=== PATIENT | female | born 1985 | race Caucasian/White ===

== ENCOUNTER 2022-01-19 05:50 | Inpatient (IN) | payer OTHER ==
[2022-01-18 12:00] VITALS: BMI 36.8
--- NOTE | 2022-01-18 20:08 | P.HPOB ---
History of Present Illness H&P Date: 01/18/22 Chief Complaint: Scheduled repeat cesasrean section This is a 36 y.o. female, 3, para 2, with an estimated date of confinement of 01/24/2022, estimated gestational age of 39-2/7 weeks, who presents for scheduled repeat section. Her has been uncomplicated and she has been followed by maternal medicine due to advanced maternal age and history of HELLP syndrome. She has been on baby ASA for prevention of preeclampsia. She has been doing regular NSTs. labs: Hepatitis B surface antigen-neg RPR-NR Rubella-immune HIV-NR Blood type-A+ Antibody screen-neg Hemoglobin-12.9 1 hr. GTT-110 GBS-neg OB Hx: . History of 2 previous sections. 1st was term with failure to progress. 2nd was at 35 weeks with HELLP syndrome. [employer] Hx: No hx of STDs Social Hx: . Works part-time as a restaurant line server. Review of Systems Constitutional: Denies chills, Denies fever Eyes: denies blurred vision, denies pain Ears, nose, mouth and throat: Denies headache, Denies sore throat Cardiovascular: Denies chest pain, Denies shortness of breath Respiratory: Denies cough Gastrointestinal: Reports abdominal pain (irregular contractions), Denies diarrhea, Denies nausea, Denies vomiting Genitourinary: Reports , Denies dysuria, Denies hematuria Musculoskeletal: Reports low back pain Integumentary: Denies pruritus, Denies rash Neurological: Denies numbness, Denies weakness Psychiatric: Denies anxiety, Denies depression Past Medical History Past Medical History: No Reported History History of Any Multi-Drug Resistant Organisms: None Reported Past Surgical History: Section (x2), Orthopedic Surgery Additional Past Surgical History / Comment(s): RT KNEE SCOPE Past Anesthesia/Blood Transfusion Reactions: No Reported Reaction Past Psychological History: No Psychological Hx Reported Smoking Status: Never smoker Past Alcohol Use History: None Reported Past Drug Use History: None Reported - Past Family History Father Family Medical History: Cancer (prostate) Sister(s) Family Medical History: Thyroid Disorder Additional Family Medical History / Comment(s): hashimotos Medications and Allergies Home Medications Medication Instructions Recorded Confirmed Type Aspirin EC [Ecotrin Low Dose] 81 mg PO DAILY 01/18/22 01/19/22 History Pnv No.95/Ferrous Fum/Folic AC 1 each PO DAILY 01/18/22 01/19/22 History [ Multivitamin Tablet] Allergies Allergy/AdvReac Type Severity Reaction Status Date / Time No Known Allergies Allergy Verified 01/19/22 06:08 Exam Osteopathic Statement: *. No significant issues noted on an osteopathic structural exam other than those noted in the History and Physical/Consult. Intake and Output 01/18/22 01/18/22 01/18/22 06:59 14:59 22:59 Other: Weight 97.522 kg HEENT: within normal limits Heart: regular rate and rhythm Lungs: clear to auscultation bilaterally Abdomen: soft, , non-tender Cervix: closed/50%/floating heart tones: 140's by doppler Extremities: neg. Roseanne's Results Result Diagrams: 01/19/22 06:15 Assessment and Plan (1) 39 weeks gestation of Current Visit: No Status: Acute Code(s): Z3A.39 - 39 WEEKS GESTATION OF SNOMED Code(s): 70129737 (2) Previous delivery affecting Current Visit: No Status: Acute Code(s): O34.219 - MATERNAL CARE FOR UNSP TYPE SCAR FROM PREVIOUS DEL SNOMED Code(s): 706392895 (3) Advanced maternal age (AMA) in Current Visit: No Status: Acute Code(s): FAW5621 - SNOMED Code(s): 360375501 Plan: Proceed with repeat low transverse section. I have discussed the risks, benefits, and alternative therapies for the above- mentioned procedure and for both sedation/anesthesia as well as necessary blood products administration, if indicated, as they pertain to this patient. The patient has indicated her understanding and acceptance of the risks and procedures discussed.
[2022-01-19] MEDS ORDERED: LACTATED RINGERS 1,000 ML IV ONE (06:08)
[2022-01-19] MEDS ORDERED: CITRIC ACID-SODIUM CITRATE 15 ML CUP PO ONE (06:08)
[2022-01-19] MEDS ORDERED: LIDOCAINE 1% (10MG/ML) FOR IV START INTRADERMA PRN (06:08)
[2022-01-19 06:34] LABS: Basophils % (A) 0 %; Eosinophils # (A) 0.2 k/uL (0-0.7); Eosinophils % (A) 2 %; HCT 38.1 % (34.0-46.0); HGB 12.4 gm/dL (11.4-16.0); Lymphocytes # (A) 1.8 k/uL (1.0-4.8); Lymphocytes % (A) 16 %; MCH 30.4 pg (25.0-35.0); MCHC 32.7 g/dL (31.0-37.0); MCV 93.1 fL (80.0-100.0); Mean Platelet Volume 9.5; Monocytes # (A) 0.5 k/uL (0-1.0); Monocytes % (A) 4 %; Neutrophils # (A) 8.6 k/uL (1.3-7.7); Neutrophils % (A) 76 %; Platelet Count 193 k/uL (150-450); RBC 4.09 m/uL (3.80-5.40); RDW 13.1 % (11.5-15.5); WBC 11.2 k/uL (3.8-10.6)
[2022-01-19] MEDS: LACTATED RINGERS 1,000 ML IV SCH ×2 (07:52→21:33)
[2022-01-19] MEDS ORDERED: NALBUPHINE 10 MG/ML (1 ML AMP) ONE (07:57)
[2022-01-19] MEDS ORDERED: ONDANSETRON 4 MG/2 ML VIAL ONE (07:57)
[2022-01-19] MEDS ORDERED: KETOROLAC 15 MG/ML 1 ML VIAL ONE (07:57)
[2022-01-19] MEDS ORDERED: ePHEDrine 50 MG/ML 1 ML VIAL ONE (07:57)
[2022-01-19] MEDS ORDERED: OXYTOCIN 30 UNITS/500 ML NS BAG IV ONE (07:57)
[2022-01-19] MEDS ORDERED: MORPHINE SULFATE (PF) 0.3 MG/0.3 ML SYR ONE (07:57)
[2022-01-19] MEDS ORDERED: GLYCOPYRROLATE 0.2 MG/ML 2 ML VIAL ONE (07:57)
--- NOTE | 2022-01-19 08:50 | P.OP ---
Date of Procedure: 01/19/22 Preoperative Diagnosis: 1. Intrauterine at 39-2/7 weeks. 2. History of previous sections. 3. Advanced maternal age. Postoperative Diagnosis: 1. Intrauterine at 39-2/7 weeks. 2. History of previous sections. 3. Advanced maternal age. 4. Meconium. Procedure(s) Performed: Repeat low transverse section Anesthesia: spinal (Duramorph) Surgeon: Adrienne Abraham Perforator Operator #1: Trey Valenzuela Estimated Blood Loss (ml): 350 Pathology: other (Placenta) Condition: stable Disposition: floor Indications for Procedure: This is a 36-year-old female 3 para 2 at 39-2/7 weeks who presents for scheduled repeat section due to history of previous sections. I have discussed the risks, benefits, and alternative therapies for the above- mentioned procedure and for both sedation/anesthesia as well as necessary blood products administration, if indicated, as they pertain to this patient. The patient has indicated her understanding and acceptance of the risks and procedures discussed. Operative Findings: A viable male infant is noted in the vertex presentation with scores of 8 at 1 minute and 9 at 5 minutes and weight of 6 lbs. 11 oz. Meconium fl uid was noted. Normal uterus tubes and ovaries are noted. Description of Procedure: The patient is taken to the operating room where she is placed in the dorsal supine position with leftward tilt after spinal Duramorph anesthesia is given. She is prepped and draped in the normal sterile fashion. Skin was tested and found to be adequately anesthetized. A Pfannenstiel skin incision was made with a scalpel through the previous laparotomy scar. A second knife was used to carry the incision down to the underlying layer of fascia. The fascia was nicked in the midline with a scalpel and then extended laterally bilaterally with Canela scissors. The anterior lip of the fascia was grasped with 2 Bonnie clamps and then dissected off the underlying rectus muscle in the midline with Canela scissors. The inferior aspect of the fascial incision was grasped with 2 Bonnie clamps and dissected off the underlying rectus muscle and the midline with Canela scissors. Next the peritoneum layer was tented up with 2 hemostats and then entered sharply with the scalpel. The incision is extended superiorly and inferiorly with Metzenbaum scissors. Next a DeLee retractor is placed. The vesicouterine peritoneum is entered sharply with Metzenbaum scissors and extended laterally bilaterally with Metzenbaum scissors and then the bladder flap is pushed inferiorly. The lower uterine segment is incised in transverse fashion with the scalpel and then bluntly entered with a hemostat. Meconium fluid is noted. The incision was then extended laterally bilaterally with 2 fingers. Next the infant's head is delivered through the incision. Nose and mouth are bulb suctioned. The remainder of the infant is easily delivered and placed on mother's abdomen. Cord is clamped and cut. Infant is taken to warmer by nursing staff. Uterine fundus is gently massaged and placenta is delivered manually. Uterus is exteriorized and cleared of all clots and debris. Uterine incision is closed with 0 Vicryl suture in a running locked fashion. A second layer of 0 Vicryl suture is used in a running fashion for hemostasis. Good hemostasis is noted. Posterior cul-de-sac is suctioned of all clots and debris. Uterus is returned to the abdomen. Incision is noted to be hemostatic. Peritoneal layer is closed with 0 Vicryl suture in a running fashion. Muscle layer is reapproximated with 0 Vicryl suture in interrupted fashion. Fascia layer is then closed with 0 PDS suture with 2 sutures meeting in the midline and the knots buried in either side and in the midline. The subcutaneous tissue was then closed with 2-0 Vicryl suture. Skin layer was then closed with josue. All sponge and needle counts are correct. The patient is taken to recovery room in stable condition.
[2022-01-19] MEDS ORDERED: ONDANSETRON 4 MG/2 ML VIAL IVP PRN (09:10)
[2022-01-19] MEDS ORDERED: diphenhydrAMINE 50 MG/ML 1 ML VIAL IVP PRN ×2 (09:10)
[2022-01-19] MEDS ORDERED: OXYTOCIN 30 UNITS/500 ML NS 30 UNIT in SALINE 1 500ML.BAG IV SCH (09:10)
[2022-01-19] MEDS ORDERED: HYDROmorphone 0.5 MG/0.5 ML SYRINGE IVP PRN (09:10)
[2022-01-19] MEDS ORDERED: ZOLPIDEM 5 MG TAB PO PRN (09:10)
[2022-01-19] MEDS ORDERED: NALOXONE 0.4 MG/ML 1 ML VIAL IV PRN (09:10)
[2022-01-19] MEDS ORDERED: METOCLOPRAMIDE 5 MG/ML 2 ML VIAL IVP PRN (09:10)
[2022-01-19] MEDS ORDERED: LANOLIN CREAM 5 GM TUBE TOPICAL PRN (09:10)
[2022-01-19] MEDS ORDERED: diphenhydrAMINE 25 MG CAP PO PRN (09:10)
[2022-01-19] MEDS ORDERED: diphenhydrAMINE 50 MG CAP PO PRN (09:10)
[2022-01-19] MEDS ORDERED: SIMETHICONE 80 MG CHEWABLE PO PRN (09:10)
[2022-01-19] MEDS ORDERED: HYDROmorphone 1 MG/ML 1 ML SYRINGE IVP PRN (09:10)
[2022-01-19] MEDS: ACETAMINOPHEN IV (For NPO) 1,000 MG in EMPTY BAG 1 BAG IVPB SCH ×2 (14:00→21:33)
[2022-01-19] MEDS: ACETAMINOPHEN TAB 500 MG TAB PO SCH ×2 (17:57→19:37)
[2022-01-19] MEDS: IBUPROFEN 600 MG TAB PO SCH ×2 (17:57→22:34)
[2022-01-19] MEDS ORDERED: KETOROLAC 15 MG/ML 1 ML VIAL IVP SCH (18:00)
[2022-01-19] MEDS: SENNOSIDES-DOCUSATE SODIUM 1 EACH TAB PO SCH (19:37)
[2022-01-19 23:04] VITALS: RESP 16
[2022-01-20] MEDS: ACETAMINOPHEN TAB 500 MG TAB PO SCH ×4 (01:39→19:54)
[2022-01-20] MEDS: IBUPROFEN 600 MG TAB PO SCH ×4 (04:38→22:58)
[2022-01-20 06:27] LABS: Basophils % (A) 0 %; Eosinophils # (A) 0.1 k/uL (0-0.7); Eosinophils % (A) 1 %; HGB 11.1 gm/dL (11.4-16.0); Lymphocytes # (A) 1.5 k/uL (1.0-4.8); Lymphocytes % (A) 14 %; MCH 30.1 pg (25.0-35.0); MCHC 31.7 g/dL (31.0-37.0); MCV 94.9 fL (80.0-100.0); Mean Platelet Volume 9.2; Monocytes # (A) 0.4 k/uL (0-1.0); Monocytes % (A) 3 %; Neutrophils # (A) 9.2 k/uL (1.3-7.7); Neutrophils % (A) 81 %; Platelet Count 165 k/uL (150-450); RBC 3.69 m/uL (3.80-5.40); RDW 13.2 % (11.5-15.5); WBC 11.2 k/uL (3.8-10.6)
--- NOTE | 2022-01-20 08:10 | P.PN ---
Progress Note - Text 01/20/22 647am 36-year-old female status post with spinal Duramorph, patient seen and evaluated this morning for postop pain control patient has a VAS of 0 with no complains of nausea vomiting. Her only complaint this morning his pruritus should subside by the end of the day. Otherwise doing well
--- NOTE | 2022-01-20 08:15 | P.PNOBGPC ---
Subjective - Subjective Principal diagnosis: Status post repeat postoperative day #1 Interval history: Patient is doing well. She is ambulate. She is passing flatus but no bowel movement yet. Lochia is decreasing. She is breast-feeding. Patient reports: Reports appetite normal, Reports voiding normally, Reports pain well controlled, Reports ambulating normally Marne: doing well, nursing well Objective - Vital Signs Latest vital signs: Vital Signs Temp Pulse Resp BP Pulse Ox 01/20/22 04:00 97.6 F 63 16 126/70 98 01/19/22 23:03 97.5 F L 74 16 110/69 97 01/19/22 20:00 97.8 F 77 18 123/79 100 01/19/22 17:00 98.4 F 86 16 127/84 97 01/19/22 12:00 76 18 129/77 100 01/19/22 10:42 97.1 F L 64 18 129/78 100 01/19/22 10:12 96.9 F L 74 18 129/80 100 01/19/22 09:42 68 18 128/78 98 01/19/22 09:27 96.7 F L 67 18 125/76 100 01/19/22 09:12 97.3 F L 70 18 122/74 100 01/19/22 08:55 96.4 F L 69 18 113/70 97 01/19/22 08:42 96.8 F L 72 18 122/71 98 Intake and Output 01/19/22 01/20/22 01/20/22 22:59 06:59 14:59 Output Total 450 Balance -450 Output: Urine 450 Other: # Voids 2 - Exam Extremities: Present: normal. Absent: tenderness Abdomen: Present: normal appearance, soft (Positive bowel sounds 4). Absent: distention, tenderness Incision: Present: normal, dry, intact. Absent: erythematous Uterus: Present: normal, firm. Absent: tenderness - Labs Labs: Abnormal Lab Results - Last 24 Hours (Table) 01/20/22 Range/Units 05:48 WBC 11.2 H (3.8-10.6) k/uL RBC 3.69 L (3.80-5.40) m/uL Hgb 11.1 L (11.4-16.0) gm/dL Neutrophils # 9.2 H (1.3-7.7) k/uL Assessment and Plan Assessment: Status post repeat low transverse section postoperative day #1 (1) 39 weeks gestation of Current Visit: No Status: Acute Code(s): Z3A.39 - 39 WEEKS GESTATION OF SNOMED Code(s): 47744483 (2) Previous delivery affecting Current Visit: No Status: Acute Code(s): O34.219 - MATERNAL CARE FOR UNSP TYPE SCAR FROM PREVIOUS DEL SNOMED Code(s): 375423396 (3) Advanced maternal age (AMA) in Current Visit: No Status: Acute Code(s): HDT8435 - SNOMED Code(s): 642084775 Plan: Continue with postoperative care today. Anticipate discharge home tomorrow.
[2022-01-20] MEDS ORDERED: PRENATAL VIT-IRON-FOLIC ACID 1 EACH CAP PO SCH (09:00)
[2022-01-20] MEDS: SENNOSIDES-DOCUSATE SODIUM 1 EACH TAB PO SCH ×2 (09:05→19:54)
[2022-01-21] MEDS: ACETAMINOPHEN TAB 500 MG TAB PO SCH ×4 (01:59→14:33)
[2022-01-21] MEDS: IBUPROFEN 600 MG TAB PO SCH ×2 (05:15→11:39)
[2022-01-21 08:23] VITALS: BP 148/86; PULSE 91; TEMP 97.7
--- NOTE | 2022-01-21 10:15 | P.DS ---
Providers Date of admission: 01/19/22 05:50 Expected date of discharge: 01/21/22 Attending physician: Adrienne Abraham Primary care physician: Stated None - Discharge Diagnosis(es) (1) S/P repeat low transverse Current Visit: Yes Status: Acute Hospital Course: Patient presented for repeat low transverse . She noted this procedure without crepitation. Postoperative course was on, K. She denies nausea, vomiting, chest pain, sugars of breath or any calf pain. Her vital signs are stable her lochia is decreasing her pain is controlled with Motrin and Tylenol. She will be discharged home postoperative day #2 in stable condition to follow- up with Dr. Abraham in one week. Plan - Discharge Summary Discharge Rx Participant: Yes New Discharge Prescriptions: New Ibuprofen [Motrin] 600 mg PO Q6H #60 tab Continue Pnv No.95/Ferrous Fum/Folic AC [ Multivitamin Tablet] 1 each PO DAILY Discontinued Aspirin EC [Ecotrin Low Dose] 81 mg PO DAILY Discharge Medication List Pnv No.95/Ferrous Fum/Folic AC [ Multivitamin Tablet] 1 each PO DAILY 01/18/22 [History] Ibuprofen [Motrin] 600 mg PO Q6H #60 tab 01/20/22 [Rx] Follow up Appointment(s)/Referral(s): Adrienne Abraham DO [Doctor of Osteopathic Medicine] - 02/27/22 11:30 am (Post Op 01-26-2022 at 01:30) Activity/Diet/Wound Care/Special Instructions: Instructions 1. Do not begin any exercise program for 3 weeks. 2. Do not resume sexual relations for 3 weeks or longer if uncomfortable. 3. You may take tub baths or showers at any time. 4. You may use tampons if desired after 3 weeks. 5. Keep the area of episiotomy (stitches) clean and dry. 6. If you are not nursing, wear a good fitting, supportive bra during the day and limit fluid intake for at least 1 week to prevent breast engorgement. 7. Call the office, [phone], within the next week to make appointment for your 6 week checkup if it has not already been made. 8. Report any of the following occurrences to the doctor promptly: a. Heavy, excessive bleeding b. Chills, fever c. Burning or frequency of urination d. Pain or redness and breasts if nursing e. Increasing pain or swelling in episiotomy (stitches). In addition to the above instructions, the following additional should be f ollowed: 1. No heavy lifting or straining (exercising) until after 6 week checkup. 2. Keep abdominal incision clean and dry: You may wear a dressing if more comfortable. 3. Make office appointment for 10 days after going home or as instructed by her doctor. Discharge Disposition: HOME SELF-CARE
== END 2022-01-21 15:35 | disposition home or self-care (01) | DRG 788 ==
LOC: 4FBP 05:50
PROVIDERS: ADMIT Obstetrics & Gynecology; ATTEND Obstetrics & Gynecology
PROC: 10D00Z1 Extraction of Products of Conception, Low, Open Approach (ICD-10-PCS; principal; 2022-01-19 08:00)
DX: O34.211 Maternal care for low transverse scar from previous cesarean delivery (principal); L29.9 Pruritus, unspecified; O77.0 Labor and delivery complicated by meconium in amniotic fluid; Z37.0 Single live birth; Z3A.39 39 weeks gestation of pregnancy; Z79.82 Long term (current) use of aspirin
CPT/HCPCS: 85025; 86850; 86900; 86901; 88307